=== PATIENT | female | born 1995 | race Caucasian/White ===

== ENCOUNTER → 2021-07-10 | Outpatient (CLI) | payer OTHER | LOC: M RAD 15:59 | PROVIDERS: ATTEND Otolaryngology | DX: J33.0 Polyp of nasal cavity (principal); J34.2 Deviated nasal septum; J32.2 Chronic ethmoidal sinusitis; J32.3 Chronic sphenoidal sinusitis ==

== ENCOUNTER 2021-07-31 06:02 | Day surgery (SDC) | payer OTHER ==
[~2021-07-31] VITALS: Ht 160 cm; Wt 70.3 kg
[~2021-07-31 06:02] MED LIST: CAMRTAB2 PO; LIDOCAINE 1% MDV 20ML VIAL SQ PRN; LR 1,000 ML IV SCH
[2021-07-31] MEDS ORDERED: METHYLENE BLUE 0.5% (5MG/ML) 10 ML AMP (PROVAYBLUE) As Ordered ONE (07:14)
[2021-07-31] MEDS ORDERED: LIDOCAINE W/EPINEPHRINE 1% 20ML VIAL As Ordered ONE (07:14)
[2021-07-31] MEDS ORDERED: COCAINE 4% 4ML NASAL SOLUTION BTL As Ordered ONE (07:15)
[2021-07-31] MEDS ORDERED: fentaNYL 250 MCG/5 ML INJECTION As Ordered ONE (07:46)
[2021-07-31] MEDS ORDERED: ROCURONIUM BROMIDE 50 MG/5 ML VIAL As Ordered ONE (07:46)
[2021-07-31] MEDS ORDERED: ONDANSETRON 4MG/2ML VIAL As Ordered ONE (07:46)
[2021-07-31] MEDS ORDERED: MIDAZOLAM INJ 2MG/2ML VIAL (J2250 PER 1MG) As Ordered ONE (07:46)
[2021-07-31] MEDS ORDERED: LIDOCAINE 2% 100MG/5ML SDV (FOR ANES.) As Ordered ONE (07:46)
[2021-07-31] MEDS ORDERED: dexameTHASONE 4 MG/ML 1ML VIAL (J1100 PER 1MG) As Ordered ONE (07:46)
[2021-07-31] MEDS ORDERED: SUGAMMADEX SODIUM 500 MG/5 ML VIAL (BRIDION) As Ordered ONE (07:46)
[2021-07-31] MEDS ORDERED: propofoL 200 MG/20 ML VIAL As Ordered ONE (07:46)
[2021-07-31] MEDS ORDERED: ACETAMINOPHEN 1000MG 100ML IV BTL (OFIRMEV) (J0131 PER 10MG) As Ordered ONE (07:47)
[2021-07-31] MEDS ORDERED: fentaNYL 100 MCG/2 ML INJECTION IV PRN (09:50)
[2021-07-31] MEDS ORDERED: ANEXSIA, NORCO 7.5MG/325MG TABLET(HYDROCODONE/APAP) PO PRN (09:50)
[2021-07-31] MEDS ORDERED: LR 1,000 ML IV SCH ×2 (09:50)
[2021-07-31] MEDS ORDERED: oxyCODONE 5MG TAB PO PRN (09:50)
[2021-07-31] MEDS ORDERED: MORPHINE 10 MG/ML 1ML VIAL (J2270) IV PRN (09:50)
[2021-07-31] MEDS ORDERED: ONDANSETRON 4MG/2ML VIAL IV PRN ×2 (09:50→09:55)
[2021-07-31 10:50] VITALS: BP 120/75
== END 2021-07-31 11:12 | disposition home or self-care (01) ==
LOC: M SDC 06:02
PROVIDERS: ATTEND Otolaryngology
DX: J32.9 Chronic sinusitis, unspecified (principal); J33.9 Nasal polyp, unspecified; G50.1 Atypical facial pain; Z79.3 Long term (current) use of hormonal contraceptives
CPT/HCPCS: 31253; 31267; 31288; 81025; 88305; C9046; J0131; J1100; J2250; J2405; J3010; Q9968